=== PATIENT | male | born 1950 | race American Indian/Alaskan Native ===

== ENCOUNTER 2019-02-24 11:14 | Emergency (ER) | payer MEDICARE ==
--- NOTE | 2019-02-24 13:31 | Event Note ---
ED Screening Note Date of service: 02/24/19 Time: 13:30 ED Screening Note: Pt complains of right elbow and right foot pain x 3 weeks denies injury swelling noted to foot on exam This initial assessment/diagnostic orders/clinical plan/treatment(s) is/are subject to change based on patients health status, clinical progression and re- assessment by fellow clinical providers in the ED. Further treatment and workup at subsequent clinical providers discretion. Patient/guardian urged not to elope from the ED as their condition may be serious if not clinically assessed and managed. Initial orders include: XRs
--- NOTE | 2019-02-24 14:30 | XRay Report ---
RIGHT FOOT 3 VIEW(S) INDICATION / CLINICAL INFORMATION: pain and swelling, no injury COMPARISON: None available. FINDINGS: BONES / JOINT(S): No acute fracture or subluxation. No significant arthritis. SOFT TISSUES: No significant abnormality. ADDITIONAL FINDINGS: None. Signer Name: Delmar Bo MD Signed: 02/24/2019 2:25 PM Workstation Name: [id number]
--- NOTE | 2019-02-24 14:30 | XRay Report ---
RIGHT ELBOW 3 VIEWS INDICATION / CLINICAL INFORMATION: pain, no injury COMPARISON: None available. FINDINGS: BONES / JOINT(S): Small/moderate joint effusion. An occult radial head fracture is the most likely et iology. Signer Name: Gavin Gloria MD Signed: 02/24/2019 2:25 PM Workstation Name: [email or web address]
--- NOTE | 2019-02-24 15:43 | Emergency Department Report ---
ED Extremity Problem HPI - General Chief complaint: Extremity Injury, Lower Stated complaint: RT FOOT X 3 WEEKS Time Seen by Provider: 02/24/19 13:29 Source: EMS Mode of arrival: Wheelchair Limitations: Physical Limitation - History of Present Illness Initial comments: Patient is a 68-year-old male presents emergency room with complaints of right foot and right big toe pain that began 2 weeks ago. He states he has also noticed some swelling to the right big toe. Patient also has right elbow pain that also began 2 weeks ago. He denies any fall or injury that he can recall. He denies any numbness or weakness. He denies any past medical history or allergies medications. He states he has never experienced this in the past. - Related Data Allergies Allergy/AdvReac Type Severity Reaction Status Date / Time No Known Allergies Allergy Unverified 02/24/19 13:33 ED Review of Systems ROS: Stated complaint: RT FOOT X 3 WEEKS Other details as noted in HPI Comment: All other systems reviewed and negative ED Past Medical Hx - Past Medical History Previous Medical History?: Yes Hx CVA: Yes - Surgical History Past Surgical History?: No - Social History Smoking Status: Never Smoker Substance Use Type: Alcohol ED Physical Exam - General Limitations: Physical Limitation General appearance: alert, in no apparent distress - Head Head exam: Present: atraumatic, normocephalic - Eye Eye exam: Present: normal appearance - ENT ENT exam: Present: mucous membranes moist - Extremities Exam Extremities exam: Present: other (edema and mild erythema present to the right big toe with TTP, FROM of the toes, mild ttp over the right lateral foot, no deformity, no joint laxity, FROM of the right toes, foot, and ankle, no increased warmth, TTP over the right lateral elbow, small amount of edema presen t to the right elbow, no erythema, no increased warmth, decreased flexion of the right elbow secondary to pain, neurovascularly intact throughout) - Neurological Exam Neurological exam: Present: alert, oriented X3 - Psychiatric Psychiatric exam: Present: normal affect, normal mood - Skin Skin exam: Present: warm, dry, intact ED Course Vital Signs 02/24/19 13:29 Temperature 98.2 F Pulse Rate 101 H Respiratory 18 Rate Blood Pressure 165/96 O2 Sat by Pulse 98 Oximetry ED Medical Decision Making - Radiology Data Radiology results: report reviewed Right foot x-ray no significant abnormality Right elbow x-ray small/moderate joint effusion. An occult radial head fracture is the most likely etiology. - Medical Decision Making Patient is a 68-year-old male presents emergency room with complaints of right foot and right big toe pain that began 2 weeks ago. He states he has also noticed some swelling to the right big toe. Patient also has right elbow pain that also began 2 weeks ago. He denies any fall or injury that he can recall. He denies any numbness or weakness. He denies any past medical history or allergies medications. He states he has never experienced this in the past. VSS. on exam: edema and mild erythema present to the right big toe with TTP, FROM of the toes, mild ttp over the right lateral foot, no deformity, no joint laxity, FROM of the right toes, foot, and ankle, no increased warmth, TTP over the right lateral elbow, small amount of edema present to the right elbow, no e rythema, no increased warmth, decreased flexion of the right elbow secondary to pain, neurovascularly intact throughout. Right foot x-ray no significant abnormality. Right elbow x-ray small/moderate joint effusion. An occult radial head fracture is the most likely etiology. Patient's foot exam consistent with an acute gout flare. Due to x-ray findings and point tenderness to the elbow will place patient in long-arm splint and sling. after splint placed by RN, pt is neurovascularly intact. Patient given prescription for gout medications and pain medication. advised patient to please take medication as prescribed. Do not drive or operate machinery while taking pain medication. Follow up with an orthopedic doctor in the next 2-3 days. Return to the emergency room for any new or worsening symptoms. Critical care attestation.: If time is entered above; I have spent that time in minutes in the direct care of this critically ill patient, excluding procedure time. ED Disposition Clinical Impression: Elbow effusion Qualifiers: Laterality: right Qualified Code(s): M25.421 - Effusion, right elbow Gout Qualifiers: Gout site: toe Gout etiology: unspecified cause Chronicity: acute Laterality: right Qualified Code(s): M10.9 - Gout, unspecified Disposition: TO HOME OR SELFCARE Is pt being admited?: No Does the pt Need Aspirin: No Condition: Stable Instructions: SUSPECTED FRACTURE (ED), Acute Gouty Arthritis (ED) Additional Instructions: please take medication as prescribed. Do not drive or operate machinery while taking pain medication. Follow up with an orthopedic doctor in the next 2-3 days. Return to the emergency room for any new or worsening symptoms. Referrals: BELGICA SNEED MD [Staff Physician] - 2-3 Days [facility] [Provider Group] - 2-3 Days Time of Disposition: 15:45 Print Language: DUTCH
[2019-02-24 16:56] VITALS: BP 139/82
== END 2019-02-24 16:56 | disposition home or self-care (01) ==
LOC: ED 11:14
DX: M25.421 Effusion, right elbow (principal); M10.9 Gout, unspecified